=== PATIENT | male | born 1950 | race Caucasian/White ===

== ENCOUNTER 2023-05-09 08:03 | Emergency (ER) | payer MEDICARE, OTHER, SELFPAY ==
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
[2023-05-09 08:23] VITALS: BP 134/72; PULSE 78; RESP 18; TEMP 36.9; O2SAT 99
[2023-05-09] MEDS: SILVER SULFADIAZINE 1% CR 50 GM JAR (*BKC) 1 APPLIC TOPICAL (08:38)
[2023-05-09] MEDS: TETANUS,DIPHTHERIA,AC PERTUSSIS ADULT (0.5 ML) BOOSTRIX IM (08:49)
== END 2023-05-09 08:30 | disposition home or self-care (01) ==
PROVIDERS: Emergency Provider Nurse Practitioner Family; PCP Physician Assistant
DX: T25.222A Burn of second degree of left foot, initial encounter (principal); T24.222A Burn of second degree of left knee, initial encounter; T25.132A Burn of first degree of left toe(s) (nail), initial encounter; T23.162A Burn of first degree of back of left hand, initial encounter; T23.122A Burn of first degree of single left finger (nail) except thumb, initial encounter; T22.111A Burn of first degree of right forearm, initial encounter; X11.8XXA Contact with other hot tap-water, initial encounter; E11.9 Type 2 diabetes mellitus without complications; Z23 Encounter for immunization
CPT/HCPCS: 90471; 90715; 99213; A9270; G0463

== ENCOUNTER 2024-01-21 10:14 | Outpatient (CLI) | payer MEDICARE, OTHER, SELFPAY ==
[2024-01-21 11:21] LABS: Anion Gap 8 mmol/L (8-16); Blood Urea Nitrogen 23 mg/dL (9-20); Calcium 9.1 mg/dL (8.4-10.2); Carbon Dioxide 28 mmol/L (22-30); Chloride 101 mmol/L (98-107); Estimated Glomerular Filt Rate > 60; Glucose 141 mg/dL (65-110); Potassium 4.5 mmol/L (3.4-5.0); Sodium 137 mmol/L (137-145)
== END 2024-01-21 10:15 | disposition home or self-care (01) ==
PROVIDERS: PCP Physician Assistant; Visit Provider Internal Medicine
DX: I48.0 Paroxysmal atrial fibrillation (principal)
CPT/HCPCS: 36415; 80048